=== PATIENT | female | born 1960 | race African-American/Black ===

== ENCOUNTER 2025-02-04 17:40 | Inpatient (IN) | payer MEDICAID, OTHER ==
[~2025-02-04] VITALS: Ht 162.6 cm; Wt 77.3 kg
[~2025-02-04 17:40] MED LIST: ALEN70TA65 PO; BENA-16 PO; CINA30TA32 PO; CLOB60CR12 TP; DICL100G60 TP; ESTR-95 PO; GABA-1181 PO; LEVO25TA9 PO; MEDR5TAB5 PO; METH-659 PO; PLEC3TAB2 PO; PROP10TA73 PO
[2025-02-04 19:11] LABS: PLATELET COUNT (AUTO) 216 K/uL (150-450); RED BLOOD CELL COUNT(AUTO) 4.44 MIL/uL (4.00-5.20); RED CELL DISTRIBUTION WIDTH 12.5 % (11.5-14.5); WHITE BLOOD COUNT (AUTO) 4.3 K/uL (4.5-11.0)
[2025-02-04] MEDS ORDERED: BISACODYL 10 MG RECTAL RECTAL SUPPOSITORY PR PRN (19:15)
[2025-02-04 19:18] LABS: CALCIUM, TOTAL 11.5 mg/dL (8.8-10.5); CREATININE 0.83 mg/dL (0.60-1.30); GLOMERULAR FILTR. RATE CALC > 60 mL/min (>60); GLUCOSE,RANDOM 117 mg/dL (70-110); SODIUM SERUM 136 mmol/L (136-145); UREA NITROGEN, BLOOD 13 mg/dL (7-18)
[2025-02-04] MEDS: SODIUM CHLORIDE 0.9% 1,000 ML IV ONE (19:25)
[2025-02-04 19:30] LABS: TROPONIN I-HIGH SENSITIVITY 6 ng/L (<51)
[2025-02-04 19:34] LABS: ASPARTATE AMINOTRANSFERASE 24.0 U/L (15-37); CREATINE KINASE, TOTAL ONLY 171.0 U/L (26-192); TOTAL PROTEIN, SERUM 7.4 g/dL (6.4-8.2)
[2025-02-04] MEDS: DOCUSATE SODIUM 100 MG CAPSULE PO SCH (20:20)
[2025-02-04 20:28] LABS: APPEARANCE,URINE CLEAR (CLEAR); GLUCOSE, URINE (UA) NEGATIVE (NEGATIVE); LEUKOCYTE ESTERASE ,URINE NEGATIVE (NEGATIVE); NITRATE,URINE NEGATIVE (NEGATIVE); OCCULT BLOOD,URINE SMALL (NEGATIVE); SPECIFIC GRAVITIY, URINE 1.006 (1.003-1.030)
[2025-02-04 20:51] LABS: SQUAMOUS EPITHELIAL CELL,UR Rare /LPF (None Seen)
[2025-02-04] MEDS: CARBIDOPA/LEVODOPA 25-100 MG TABLET PO SCH (21:14)
[2025-02-04 22:15] VITALS: BP 143/93; PULSE 66; RESP 18; TEMP 98.1; O2SAT 97
[2025-02-04 22:31] LABS: TROPONIN I-HIGH SENSITIVITY 5 ng/L (<51)
[2025-02-04] MEDS: HEPARIN SODIUM,PORCINE 5,000 UNITS/ML VIAL SQ SCH (23:18)
[2025-02-05 05:05] VITALS: BP 149/93; PULSE 70; RESP 18; TEMP 98.2; O2SAT 99
[2025-02-05 07:56] VITALS: BP 133/101; PULSE 71; RESP 18; TEMP 97.7; O2SAT 98
[2025-02-05] MEDS: FAMOTIDINE 20 MG TABLET PO SCH (08:08)
[2025-02-05] MEDS: ACETAMINOPHEN 325 MG TABLET PO PRN (08:14)
[2025-02-05] MEDS: MAGNESIUM HYDROXIDE SUSPENSION 30 ML UDCUP PO PRN (08:33)
[2025-02-05] MEDS: SODIUM CHLORIDE 0.9% 1,000 ML IV ONE (08:52)
[2025-02-05] MEDS: GABAPENTIN 300 MG CAPSULE PO SCH (11:37)
[2025-02-05 12:20] VITALS: BP 123/85; PULSE 68; RESP 18; TEMP 97.9; O2SAT 99
[2025-02-05 20:00] VITALS: BP 137/92; PULSE 90; RESP 18; TEMP 98.4; O2SAT 98
[2025-02-06 04:58] VITALS: BP 143/101; PULSE 79; RESP 18; TEMP 98.2; O2SAT 97
[2025-02-06 08:23] VITALS: BP 172/96; PULSE 77; RESP 18; TEMP 98.2; O2SAT 98
[2025-02-06] MEDS: ASPIRIN 81 MG CHEWABLE TABLET PO SCH (09:00)
[2025-02-06] MEDS: LOSARTAN POTASSIUM 25 MG TABLET PO SCH (09:22)
[2025-02-06 09:44] LABS: TROPONIN I-HIGH SENSITIVITY 4 ng/L (<51)
[2025-02-06 16:45] VITALS: BP 137/91; PULSE 68; RESP 18; TEMP 98.4; O2SAT 99
[2025-02-06 20:00] VITALS: BP 115/83; PULSE 88; RESP 18; TEMP 98.4; O2SAT 96
[2025-02-07 08:00] VITALS: BP 140/93; PULSE 70; RESP 18; TEMP 97.7; O2SAT 98
[2025-02-07] MEDS ORDERED: ASPI-1450 PO (10:36)
[2025-02-07] MEDS ORDERED: AMLO-258 PO (10:36)
[2025-02-07] MEDS ORDERED: DOCU-385 PO (10:37)
[2025-02-07] MEDS ORDERED: CARB1TAB36 PO (10:37)
[2025-02-07] MEDS ORDERED: FAMO20 PO (10:38)
[2025-02-07] MEDS ORDERED: LOSA-381 PO (10:38)
[2025-02-07] MEDS ORDERED: ACET-2247 PO (10:39)
[2025-02-07] MEDS ORDERED: MAGN-169 PO (10:40)
== END 2025-02-07 12:00 | DRG 57 ==
LOC: EMS 17:40 → EDH 19:03 → 6N 22:35 → 6S 02-05 21:32
PROVIDERS: ADMIT Internal Medicine; ATTEND Internal Medicine
DX: G20.A1 Parkinson's disease without dyskinesia, without mention of fluctuations (principal); I16.0 Hypertensive urgency; E03.9 Hypothyroidism, unspecified; E83.52 Hypercalcemia; I10 Essential (primary) hypertension; K59.09 Other constipation
CPT/HCPCS: 70450; 71045; 80048; 80076; 81001; 82550; 83880; 84443; 84484; 85025; 85610; 85730; 93005; 96360; 97116; 97163; 97167; 97530; 97535; 99285; J1644; J7030; 36415-L1; 36415-TC